=== PATIENT | male | born 1970 | race Caucasian/White ===

== ENCOUNTER 2016-09-11 09:07 | Emergency (ER) | payer OTHER ==
[~2016-09-11] VITALS: Wt 100.0 kg
[2016-09-11] MEDS: IBUPROFEN 800 MG TAB PO ONE ×2 (09:40→09:41)
[2016-09-11] MEDS ORDERED: DIPHTH/TET/ACEL PERTUSS (ADULT) 0.5 ML VIAL IM* ONE (10:00)
[2016-09-11] MEDS ORDERED: BACITRACIN 0.5%/ZINC 28.35 GM OINT TOP ONE (10:00)
[2016-09-11] MEDS ORDERED: CEPH-443 PO (10:37)
[2016-09-11] MEDS ORDERED: TRAM50TA2 PO (10:37)
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
== END 2016-09-11 10:45 | disposition home or self-care (01) ==
LOC: FTE 09:07
DX: T23.101A Burn of first degree of right hand, unspecified site, initial encounter (principal); X19.XXXA Contact with other heat and hot substances, initial encounter; Y92.9 Unspecified place or not applicable; Z23 Encounter for immunization
CPT/HCPCS: 90471; 90715; Z7502

== ENCOUNTER 2017-01-05 09:25 | Emergency (ER) | payer OTHER ==
[~2017-01-05] VITALS: Wt 105.0 kg
[~2017-01-05 09:25] MED LIST: CEPH-443 PO; TRAM50TA2 PO
[2017-01-05] MEDS ORDERED: BEN25 PO (09:54)
[2017-01-05] MEDS ORDERED: HC30CR25 TOP (09:55)
[2017-01-05] MEDS ORDERED: MUPI22OI2 TOP (09:55)
--- NOTE | 2017-01-05 09:59 | ERD ---
ER Documentation Chief Complaint Date/Time DATE: 01/05/17 TIME: 09:57 Chief Complaint GENERALIZED RASH HPI Patient is a 46-year-old male with no past medical history who presents to the ED with multiple bug bites on his arms and leg. He states that he was at his sister's house over the weekend and states that there were multiple bugs in the house and he possibly got bit. He states that the lesions are itchy and mildly painful. Denies drainage or fevers or chills. Denies abdominal pain, nausea, vomiting or diarrhea. Denies headache or dizziness, neck pain or neck stiffness. Patient has no other complaints and has not tried any medication or cream for his symptoms. ROS All systems reviewed and are negative except as per history of present illness. Medications Home Meds Active Scripts Mupirocin* (Bactroban*) 2% -22 Gram Oint...g., 1 APPLIC TOP BID for 7 Days, EA Prov:GEN MENJIVAR PA-C 01/05/17 Hydrocortisone* Topical (Hydrocortisone* Topical) 2.5%-28.3 Gm Cream..g., 1 APPLIC TOP BID, #1 TUB Prov:GEN MENJIVAR PA-C 01/05/17 Diphenhydramine Hcl* (Benadryl*) 25 Mg Cap, 25 MG PO Q6, #30 CAP Prov:GEN MENJIVAR PA-C 01/05/17 Tramadol HCl (Tramadol HCl) 50 Mg Tablet, 50 MG PO Q4 Y for PAIN, #20 TAB Prov:KENZIE WESTFALL PA-C 09/11/16 Cephalexin* (Keflex*) 500 Mg Capsule, 500 MG PO QID for 7 Days, CAP Prov:KENZIE WESTFALL PA-C 09/11/16 Allergies Allergies: Coded Allergies: No Known Allergy (Unverified , 09/11/16) PMhx/Soc History of Surgery: No Anesthesia Reaction: No Hx Neurological Disorder: No Hx Respiratory Disorders: No Hx Cardiac Disorders: No Hx Psychiatric Problems: No Hx Miscellaneous Medical Probl: No Hx Alcohol Use: No Hx Substance Use: No Hx Tobacco Use: No FmHx Family History: No coronary disease, No diabetes, No other Physical Exam Vitals Vital Signs Date Time Temp Pulse Resp B/P Pulse Ox O2 Delivery O2 Flow Rate FiO2 01/05/17 09:30 98.0 71 18 129/71 99 Physical Exam GENERAL: Well-developed, well-nourished male. Appears in no acute distress. HEAD: Normocephalic, atraumatic. EYES: Pupils are equally reactive bilaterally. EOMs grossly intact. No conjunctival erythema. ENT: Moist mucous membranes. No uvula deviation. No kissing tonsils. No exudates. NECK: Supple. No lymphadenopathy or thyromegaly. No meningismus. negative kernig. negative brudinski. LUNG: Clear to auscultation bilaterally. No rhonchi, wheezing, rales or coarse breath sounds. HEART: Regular rate and rhythm. No murmurs, rubs or gallops. Extremities: Equal pulses bilaterally. No peripheral clubbing, cyanosis or edema. No unilateral leg swelling. NEUROLOGIC: Alert and oriented. Moving all four extremities. 5/5 strength in all extremities. Normal speech. Steady gait. SKIN: Normal color. Warm and dry. Multiple erythematous insect bites on bilateral arms and a few lesions on leg. No drainage. No streaking. No warmth. Capillary refill < 2 seconds Procedures/MDM ER COURSE: I kept the patient and/or family informed of laboratory and diagnostic imaging results throughout the emergency room course. MEDICAL DECISION MAKING: This is a 46-year-old male who presents with multiple insect bites 2 days. Vital signs were reviewed. Patient is afebrile. Patient is not hypoxic. Patient is not toxic or ill-appearing. Patient has insect bites. Low suspicion for necrotizing fasciitis, SJS, toxic epidermal necrolysis, Kawasaki, erythema multiforme, gangrene, scarlet fever, meningococcemia, sepsis, anaphylaxis, sepsis, deep space infection, or foreign body. No signs of abscess. DISCHARGE: At this time, patient is stable for discharge and outpatient management with no new complaints during the ER course. Patient was sent home with Benadryl, Bactroban, hydrocortisone cream. Patient will be discharged home with instructions to recheck for new or worsening symptoms such as fever, nausea, weakness, LOC and to follow up with primary care in the next 1-2 days. Patient was advised to return to the ER for any new or worsening symptoms. Plan was discussed and patient and/or family understands and agrees. Home instructions were given. Departure Diagnosis: Primary Impression: Bug bite Encounter type: initial encounter Qualified Code: W57.XXXA - Bug bite, initial encounter Condition: Stable Patient Instructions: Insect Bite Additional Instructions: Call your primary care doctor TOMORROW for an appointment during the next 1-2 days.See the doctor sooner or return here if your condition worsens before your appointment time. GEN MENJIVAR PA-C January 05, 2017 09:59
== END 2017-01-05 10:11 | disposition home or self-care (01) ==
LOC: FTE 09:25
DX: S40.861A Insect bite (nonvenomous) of right upper arm, initial encounter (principal); S40.862A Insect bite (nonvenomous) of left upper arm, initial encounter; S80.869A Insect bite (nonvenomous), unspecified lower leg, initial encounter; W57.XXXA Bitten or stung by nonvenomous insect and other nonvenomous arthropods, initial encounter; Y92.009 Unspecified place in unspecified non-institutional (private) residence as the place of occurrence of the external cause
CPT/HCPCS: 99283